=== PATIENT | female | born 1965 | race Two or more races ===

== ENCOUNTER 2021-07-09 08:00 | Outpatient (CLI) | payer OTHER | END 2021-07-09 08:30 | disposition home or self-care (01) | LOC: PPH VACUNA 08:00 | PROVIDERS: ATTEND Emergency Medicine Pediatric Emergency Medicine | DX: Z23 Encounter for immunization (principal) ==

== ENCOUNTER 2022-08-26 11:28 | Outpatient (CLI) | payer OTHER | END 2022-08-26 12:16 | disposition home or self-care (01) | LOC: RAD 11:28 | DX: M10.9 Gout, unspecified (principal) ==

== ENCOUNTER 2023-06-21 11:26 | Outpatient (CLI) | payer OTHER | END 2023-06-21 11:58 | disposition home or self-care (01) | LOC: MRI 11:26 | DX: S90.121A Contusion of right lesser toe(s) without damage to nail, initial encounter (principal) | CPT/HCPCS: 73718 ==

== ENCOUNTER 2024-09-17 06:54 | Day surgery (SDC) | payer OTHER ==
[2024-09-17] MEDS ORDERED: MIDAZOLAM HCL 2 MG/2 ML VIAL IV ONE (10:45)
[2024-09-17] MEDS ORDERED: fentaNYL CITRATE 50 MCG/ML AMPUL IV PUSH ONE (10:45)
[2024-09-17] MEDS ORDERED: DIPHENHYDRAMINE HCL 50 MG/ML VIAL 1ML IV ONE (10:45)
== END 2024-09-17 11:55 | disposition home or self-care (01) ==
LOC: AMB-ENDOS 06:54
PROVIDERS: ATTEND Colon & Rectal Surgery
DX: K63.5 Polyp of colon (principal); K62.1 Rectal polyp; Z12.11 Encounter for screening for malignant neoplasm of colon